=== PATIENT | male | born 1955 | race Hispanic/Latino ===

== ENCOUNTER → 2016-11-02 | Outpatient (CLI) | payer BC ==
[2016-11-02 09:17] LABS: HEMOGLOBIN A1C 6.18 % (4.2-6.0); MEAN BLOOD GLUCOSE (CALC) 119.794 mg/dL
[2016-11-02 09:42] LABS: ASPARTATE AMINO TRANSFERASE 86 IU/L (21-57); BILIRUBIN,TOTAL 1.2 mg/dL (0.3-1.2); BLOOD UREA NITROGEN 12 mg/dL (7-22); BUN/CREATININE RATIO 13.33 (6-20); CALCIUM 9.5 mg/dL (8.7-10.7); CHLORIDE 105 meq/L (98-112); CREATININE 0.9 mg/dL (0.70-1.50); EST GLOMERULAR FILTRATION > 60 (>60 ml/min/1.73m(2)); GLUCOSE 102 mg/dL (78-110); HDL CHOLESTEROL 37 mg/dL (40-150); POTASSIUM 4.2 meq/L (3.8-5.2); SODIUM 139 meq/L (135-145); TOTAL PROTEIN 7.9 g/dL (6.1-8.0); TRIGLYCERIDES 288 mg/dL (44-200)
[2016-11-02 09:58] LABS: FREE T4 (FREE THYROXINE) 0.99 ng/dL (0.93-1.71)
== END ==
LOC: LAB 08:50
PROVIDERS: ATTEND Family Medicine
DX: E03.9 Hypothyroidism, unspecified (principal); E78.5 Hyperlipidemia, unspecified; R73.09 Other abnormal glucose
CPT/HCPCS: 36415; 80053; 80061; 83036; 84439; 84443

== ENCOUNTER → 2017-04-06 | Outpatient (CLI) | payer BC ==
--- NOTE | 2017-04-07 09:27 | DI ---
XR WRIST COMPLETE MIN 3VW,04/06/2017 3:43 PM: Clinical History: Left wrist pain. Previous Exam: None at this facility. Findings: 3 views of the left wrist are obtained, and demonstrate a comminuted intra-articular fracture of the left distal radius. The distal radial ulnar joint appears normal. The carpal bones also appear normal. Impression: Comminuted intra-articular left distal radial fracture.
--- NOTE | 2017-04-07 09:52 | DI ---
XR WRIST COMPLETE MIN 3VW,04/06/2017 3:43 PM: Clinical History: Right wrist pain Previous Exam: None at this facility. Findings: 3 views of the right wrist are obtained, and demonstrate an avulsion fracture along the posterior rig ht wrist. This is slightly displaced. Impression: Displaced triquetral avulsion fracture otherwise unremarkable.
== END ==
LOC: ORTHO 15:53
PROVIDERS: ATTEND Orthopaedic Surgery
DX: M25.531 Pain in right wrist (principal); M25.532 Pain in left wrist; S62.111A Displaced fracture of triquetrum [cuneiform] bone, right wrist, initial encounter for closed fracture; S52.572A Other intraarticular fracture of lower end of left radius, initial encounter for closed fracture
CPT/HCPCS: 73110

== ENCOUNTER → 2017-05-11 | Outpatient (CLI) | payer BC ==
--- NOTE | 2017-05-12 19:31 | DI ---
LEFT WRIST, 05/11/2017 1:52 PM: Clinical History: Closed fracture of the distal left radius with routine healing. Previous Exam: 04/06/2017. 5 views are submitted. The impacted intra-articular fracture involving the radial styloid shows scler osis at the fracture site indicating healing. There is no fracture of the scaphoid bone. The carpal t unnel projection is normal. The distal radial articular surface is in neutral position and the estima nora percent involvement of the articular surface is approaching 50%. On the PA projection, there is a step off between the medial aspect of the distal radius and the radial styloid articular surface an approximately 2 mm. Reading: Healing impacted intra-articular fracture of the distal radius with no change in alignment and positi on. There is no scaphoid fracture in the carpal tunnel projection is normal.
== END ==
LOC: ORTHO 15:00
PROVIDERS: ATTEND Orthopaedic Surgery
DX: S52.572D Other intraarticular fracture of lower end of left radius, subsequent encounter for closed fracture with routine healing (principal)
CPT/HCPCS: 73110

== ENCOUNTER → 2017-06-01 | Outpatient (CLI) | payer BC ==
--- NOTE | 2017-06-01 15:54 | DI ---
XR WRIST COMPLETE MIN 3VW,06/01/2017 3:08 PM: Clinical History: Fracture of the left radius. Previous Exam: May 11, 2017 Findings: 3 views of left wrist are obtained, and demonstrate a slightly displaced intra-articular left distal radial fracture. There is some stable soft tissue swelling. Impression: Slightly displaced intra-articular left distal radial fracture.
== END ==
LOC: ORTHO 15:17
PROVIDERS: ATTEND Orthopaedic Surgery
DX: S52.572D Other intraarticular fracture of lower end of left radius, subsequent encounter for closed fracture with routine healing (principal)
CPT/HCPCS: 73110